=== PATIENT | female | born 1950 ===

== ENCOUNTER 2017-12-07 00:32 | Inpatient (IN) | payer MEDICARE, BC ==
[2017-12-06 15:03] LABS: INR 0.92
[~2017-12-07] VITALS: Ht 162.6 cm; Wt 118.4 kg
[2017-12-07] VITALS (13 sets, daily range): BP systolic 109–133; BP diastolic 63–87
[~2017-12-07 00:32] MED LIST: ACYC-50 PO; CALC-652 PO; DEN60I SUBQ; METH5TAB87 PO; MOMR ENA; POLY17PO25 PO; SPIR25TA78 PO; TRAZ-156 PO
--- NOTE | 2017-12-07 04:10 | HISTORY AND PHYSICAL ---
DATE OF ADMISSION: December 07, 2017 IDENTIFICATION, CHIEF COMPLAINT Lizet is a 67-year-old woman with a chief complaint of left knee pain. HISTORY OF PRESENT ILLNESS Patient has a longstanding history of knee arthritis, progressively painful and debilitating, refractory to conservative care. Surgery is indicated to relieve symptoms after failure of nonoperative measures. PAST MEDICAL HISTORY Notable for primary hyperaldosteronism, hyperthyroidism and arthritis. PAST SURGICAL HISTORY Notable for spinal operation, foot operation, cholecystectomy and hernia repair. ALLERGIES PENICILLIN, which causes a rash. CURRENT MEDICATIONS 1. Methimazole 5 mg q.a.m. 2. Spironolactone 50 mg q.a.m. 3. Trazodone 25 mg as needed. 4. Nasonex once daily for congestion. 5. Multiple vitamins. 6. She also gets Prolia injections once every six months for osteopenia. SOCIAL HISTORY Notable for smoking a half a pack of cigarettes per day. She drinks alcoholic beverages about one drink every six months on a rare occasion, denies abuse. REVIEW OF SYSTEMS Negative. FAMILY HISTORY Notable for thyroid problems on both sides of her family. PHYSICAL EXAMINATION GENERAL: This is a heavyset female. She appears stated age. HEENT: She is normocephalic, atraumatic. NECK: Supple. LUNGS: Clear. HEART: Regular. ABDOMEN: Soft. ORTHOPEDIC EXAM: There is valgus deformity noted in the knee. This is partially passively correctable. The knee is grossly stable. Extensor function is intact. Motion 0-110. Calves nontender. RADIOGRAPHIC DATA Radiographs demonstrate end-stage DJD, mostly really affecting the lateral compartment. ASSESSMENT Left knee end-stage degenerative joint disease, progressively painful and debilitating, refractory to conservative care. PLAN Per patient request, we are going to proceed with total knee arthroplasty. Nature of the procedure, risks, benefits, and alternatives were reviewed. The risks of the procedure include, but are not limited to, , major medical or anesthetic complication, infection, neurovascular injury, blood transfusion, stiffness, scarring, fracture, tendon rupture, instability, implant loosening, migration or failure, persistent or recurrent pain, need for additional surgery , and other unforeseen. She understands and wishes to proceed. Signed permit was placed in the chart, no guarantees are given or implied. JENNIFER
[2017-12-07] MEDS ORDERED: DEXAMETHASONE SOD PHOS 10MG/ML ONE (11:25)
[2017-12-07] MEDS ORDERED: ONDANSETRON 4 MG/2 ML VIAL ONE (11:25)
[2017-12-07] MEDS ORDERED: PROPOFOL EMUL(*) 10MG/ML 20 ML 20 ML ONE (11:25)
[2017-12-07] MEDS ORDERED: TRANEXAMIC AC 1000 MG/10ML SDV 1,000 MG in DEXTROSE 5% 50 ML BAG 50 ML IV ONE (12:00)
[2017-12-07] MEDS ORDERED: ACETAMINOPHEN 500 MG TAB PO ONE (12:00)
[2017-12-07] MEDS ORDERED: cloNIDine EPIDUR INJ 100MCG/ML 40 MCG, ROPIVACAINE 0.5% 20 ML VIAL 25 ML, EPINEPHrine H... INJ ONE (12:00)
[2017-12-07] MEDS ORDERED: CLINDAMYCIN(*) 900 MG/NS 50 ML 50 ML IVPB ONE (12:00)
[2017-12-07] MEDS ORDERED: PREGABALIN 150 MG CAPSULE PO ONE (12:00)
[2017-12-07] MEDS ORDERED: FAMOTIDINE 20 MG TAB PO ONE (12:00)
[2017-12-07] MEDS ORDERED: CELECOXIB 200 MG CAP PO ONE (12:00)
[2017-12-07] MEDS ORDERED: LIDOCAINE/SOD BICARB 8.4% SYR ID ONE (12:00)
[2017-12-07] MEDS ORDERED: NORMOSOL R SOLN(*) 1000 ML BAG 1,000 ML IV PRN ×2 (12:00→16:00)
[2017-12-07] MEDS ORDERED: MIDAZOLAM 2 MG/2 ML VIAL IVP PRN (12:00)
[2017-12-07] MEDS ORDERED: LIDOCAINE/SOD BICARB 8.4% SYR ONE (12:53)
[2017-12-07] MEDS ORDERED: VANCOMYCIN 1 GM VIAL ONE (14:34)
[2017-12-07] MEDS ORDERED: diphenhydrAMINE 25 MG CAP PO PRN (16:00)
[2017-12-07] MEDS ORDERED: MAGNESIUM HYDROXIDE* 30ML UDCP PO PRN (16:00)
[2017-12-07] MEDS ORDERED: ZOLPIDEM TARTRATE 5 MG TAB PO PRN (16:00)
[2017-12-07] MEDS ORDERED: diphenhydrAMINE 50 MG/ML VIAL IVP PRN (16:00)
[2017-12-07] MEDS ORDERED: PROMETHAZINE 25 MG/ML 1 ML AMP IVP PRN (16:00)
[2017-12-07] MEDS ORDERED: BISACODYL 10 MG SUPP PR PRN (16:00)
[2017-12-07] MEDS ORDERED: FLUSH 10 ML SYR IVP PRN (16:00)
[2017-12-07] MEDS ORDERED: ACETAMINOPHEN 325 MG TAB PO PRN (16:00)
[2017-12-07] MEDS ORDERED: BENZOCAINE/MENTHOL 1 EACH LOZG PO PRN (16:00)
--- NOTE | 2017-12-07 16:37 | RADIOLOGY IMAGING REPORT ---
[place] [facility] [place] NAME: Lizet Wilkins : 1950 MR: [id number] V: [id number] EXAM DATE: ORDERING PHYSICIAN: ERIKA SALDANA TECHNOLOGIST: Location: [facility] Patient: Lizet Wilkins : 1950 Visit/Account:[id number] Date of Sevice: 12/07/2017 Exam type: KNEE LIMITED LEFT History: POST OP LEFT TKA Comparison: None. Findings: AP and lateral views the left knee demonstrate a left knee arthroplasty in good anatomic alignment. Soft tissue gas and skin jude project over the anterior aspect of this postoperative knee IMPRESSION: 1. As above Report Dictated By: Loni Flores MD at 12/07/2017 4:33 PM Report E-Signed By: Loni Flores MD at 12/07/2017 4:33 PM WSN:[id number]
--- NOTE | 2017-12-07 17:06 | OPERATIVE REPORT 1 ---
EVENT DATE: December 07, 2017 SURGEON: Ad Henriquez MD ANESTHESIOLOGIST: Armin Seals MD ANESTHESIA: General plus spinal. ELEMENTARY LIBRARIAN: ISI Anaya PREOPERATIVE DIAGNOSIS Left knee degenerative joint disease. POSTOPERATIVE DIAGNOSIS Left knee degenerative joint disease. PROCEDURE PERFORMED Left total knee arthroplasty. ESTIMATED BLOOD LOSS Minimal. DRAINS None. SPECIMENS None. COMPLICATIONS None apparent. TOURNIQUET TIME 38 minutes INDICATIONS Lizet is a 67-year-old woman with intractable pain related to end-stage knee arthritis. Surgery is indicated to relieve symptoms after failure of nonoperative measures. DESCRIPTION OF PROCEDURE Patient was taken to the operating room and placed supine on the operating table. Spinal block was administered by the anesthesiologist. General anesthesia was induced. Antibiotics and TXA were administered IV. Left lower extremity was prepped and draped in the usual sterile fashion for orthopedic surgery. Limb was exsanguinated with an Esmarch bandage. Tourniquet inflated to 300 mmHg. Midline longitudinal incision made, carried down through the skin and subcutaneous tissue to the extensor mechanism. A medial parapatellar arthrotomy was performed. Patella was everted. Knee was brought into the flexed position. Fat pad, anterior horns of the menisci, and the cruciate ligaments are debrided. A conservative subperiosteal medial release is performed 1 cm circumferentially around the upper plateau to release the knee. A step drill is used to enter the distal femur. A 10-inch long alignment guide is used to engage the isthmus, cut set for 6 degrees of valgus relative to the anatomic axis. The 10 mm resection block is applied, pinned, and cuts made with an oscillating saw. AP sizing guide is applied to the distal femoral cut. There is no hypoplasia in spite of the valgus deformity. The block is positioned for 3 degrees of external rotation relative to the posterior condyles. Size 4 is optimal without risk of notching. The four-in-one cutting block is applied. Anterior, posterior, posterior chamfer, and anterior chamfer cuts are made respectively. PS block is applied and centered. Medial and lateral bone is removed from the box. Trial femur has good fit. Attention is turned to tibial preparation. The extramedullary guide is applied, positioned for varus, valgus, posterior slope, and rotation. This is set to resect 2 mm from the relatively deficient lateral tibial plateau. Block is pinned. Alignment check is made. Cuts made with an oscillating saw. After removal of osteophytes, no additional release is required to balance the knee. The size 3 tibial baseplate provides a good coverage without soft tissue overhang. This is loaded along with the trial liner and trial femur. Knee is brought to full extension. Patella is taken from the starting thickness of 23 to a residual of 14 with a patellar clamp and oscillating saw. The 33 provides optimum bony coverage without soft tissue overhang. Lug holes are drilled. Patella tracks nicely with the no-touch technique. Final tibial preparation consists of assuring appropriate rotational and translational positioning of the component. The boss is reamed. Fin is punched. Surfaces are lavaged. The patient's hole in the femoral canal due to osteopenic bone and lifting with the femoral retractor is packed densely with chips from the previously resected bone. Mixed methacrylate is made and components cemented in a single stage beginning with the tibia, followed by the femur. Axial load is held with the trial liner in full extension. The patella is held with a clamp. Once the cement is fully polymerized, the tourniquet is deflated, and hemostasis is assured. The 13 fills up the gap ideally, allowing the knee to drop to full extension without hyperextension, providing optimal soft tissue tension and stability. The tray is lavaged and dried, and the actual liner is locked into the baseplate. The arthrotomy is closed in flexion with #2 Ethibond, subcutaneous tissue with 3-0 Vicryl, and the skin with surgical jude. Xeroform and 4 x 4's applied as a dry, sterile dressing and compression wrap. The patient was awakened from anesthesia and taken to the recovery room in stable condition having tolerated the procedure well. Plan is for standard TKA rehab protocol. [facility]
[2017-12-07] MEDS ORDERED: TRAZ-156 PO (17:11)
[2017-12-07] MEDS ORDERED: SPIR50TA31 PO (17:11)
[2017-12-07] MEDS: CELECOXIB 200 MG CAP PO SCH (18:09)
--- NOTE | 2017-12-07 18:58 | Hospitalist Progress Note ---
Subjective Progress Notes Subjective Patient seen post-op. Reviewed PMHx (functioning adrenal adenoma, hyperthyroidism, smoking) and medications (methimazole, spironolactone, nicotine patch). At present she reports doing well. No CP/SOB/N/V. She has a history of post-op PE in mother and sister. She has Xarelto arranged for DVT prophylaxis following surgery. Physical Exam Vital Signs Date Time Temp Pulse Resp B/P (MAP) Pulse Ox O2 Delivery O2 Flow Rate FiO2 12/07/17 18:45 97.8 71 19 129/84 (99) 95 Nasal Cannula 0.5 Intake and Output 12/08/17 06:59 Intake Total 2750 ml Output Total 20 ml Balance 2730 ml Intake Oral 600 ml IV Total 1100 ml Other 1050 ml Output Estimated Blood Loss 20 ml General Appearance: Alert, Awake Cardiovascular: Regular Rate and Rhythm Respiratory: Clear to Auscultation Assessment and Plan Problems: (1) S/P knee replacement Status: Acute Assessment & Plan: She appears to be doing well post-op. She has a rather strong family history of post-op PE. She has already arranged for Xarelto 10mg daily and has prescription at home. (2) Hyperthyroidism Status: Chronic Assessment & Plan: Will continue her low dose methimazole. Will check CBC post- op. (3) History of adrenal adenoma Status: Chronic Assessment & Plan: Will continue her spironolactone. Check BMP post-op to monitor electrolytes. Exam Sepsis Risk: No Definite Risk GUNNER HERNANDEZ MD Dec 07, 2017 18:58
[2017-12-07] MEDS: APAP/HYDROCODONE 325/7.5 TAB PO PRN (21:10)
[2017-12-07] MEDS: CLINDAMYCIN(*) 900 MG/NS 50 ML 50 ML IVPB SCH (21:19)
[2017-12-07] MEDS: DIAZEPAM 5 MG TAB PO PRN (23:33)
[2017-12-08] VITALS (8 sets, daily range): BP systolic 126–143; BP diastolic 75–100; Ht 162.6 cm; Wt 118.4 kg
[2017-12-08] MEDS: CLINDAMYCIN(*) 900 MG/NS 50 ML 50 ML IVPB SCH ×2 (04:34→13:40)
[2017-12-08] MEDS: APAP/HYDROCODONE 325/7.5 TAB PO PRN ×3 (04:50→20:40)
[2017-12-08 06:18] LABS: PLATELET COUNT, AUTOMATED 139 K/uL (150-450)
[2017-12-08] MEDS: DIAZEPAM 5 MG TAB PO PRN ×3 (06:22→22:27)
--- NOTE | 2017-12-08 07:55 | Hospitalist Progress Note ---
Subjective Progress Notes Subjective She reports doing well. No complaints this AM. Physical Exam Vital Signs Date Time Temp Pulse Resp B/P (MAP) Pulse Ox O2 Delivery O2 Flow Rate FiO2 12/08/17 07:46 98.0 73 16 132/88 (103) 96 Nasal Cannula 12/08/17 03:16 0.5 General Appearance: Alert, Awake Cardiovascular: Regular Rate and Rhythm Respiratory: Clear to Auscultation Result Diagram: 12/08/1760412/08/17604 Assessment and Plan Problems: (1) S/P knee replacement Status: Acute Assessment & Plan: She appears to be stable post-op. She has a rather strong family history of post-op PE. She has already arranged for Xarelto 10mg daily and has prescription at home. (2) Hyperthyroidism Status: Chronic Assessment & Plan: Will continue her low dose methimazole. (3) History of adrenal adenoma Status: Chronic Assessment & Plan: Will continue her spironolactone. Exam Sepsis Risk: No Definite Risk GUNNER HERNANDEZ MD Dec 08, 2017 07:55
[2017-12-08] MEDS: SPIRONOLACTONE 25 MG TAB PO SCH (08:23)
[2017-12-08] MEDS: CELECOXIB 200 MG CAP PO SCH ×2 (08:23→17:47)
[2017-12-08] MEDS: METHIMAZOLE 10 MG TAB PO SCH (08:24)
[2017-12-08] MEDS: RIVAROXABAN 10 MG TAB PO SCH (08:24)
[2017-12-08] MEDS: NICOTINE 21 MG/24 HR PATCH TD SCH ×2 (09:00→20:40)
[2017-12-08] MEDS ORDERED: ASPIRIN 325 MG TAB PO SCH (09:00)
[2017-12-08] MEDS: ACYCLOVIR 200 MG CAP PO SCH ×2 (09:55→20:40)
[2017-12-08] MEDS ORDERED: MORPHINE 4 MG/ML SDV IVP ONE (11:25)
[2017-12-08] MEDS ORDERED: KETOROLAC 15 MG/ML VIAL IVP ONE (11:25)
[2017-12-09] MEDS: APAP/HYDROCODONE 325/7.5 TAB PO PRN ×4 (01:46→19:32)
[2017-12-09] MEDS: DIAZEPAM 5 MG TAB PO PRN ×2 (05:28→11:32)
[2017-12-09 07:42] VITALS: BP 123/92
[2017-12-09] MEDS: CELECOXIB 200 MG CAP PO SCH ×2 (07:56→16:43)
[2017-12-09] MEDS: RIVAROXABAN 10 MG TAB PO SCH (08:44)
[2017-12-09] MEDS: ACYCLOVIR 200 MG CAP PO SCH ×2 (08:44→21:40)
[2017-12-09] MEDS: METHIMAZOLE 10 MG TAB PO SCH (08:44)
[2017-12-09] MEDS: SPIRONOLACTONE 25 MG TAB PO SCH (08:44)
[2017-12-09 11:02] VITALS: BP 120/82
--- NOTE | 2017-12-09 11:08 | Hospitalist Progress Note ---
Subjective Progress Notes Subjective No new complaints. Her pain is improving. Physical Exam Vital Signs Date Time Temp Pulse Resp B/P (MAP) Pulse Ox O2 Delivery O2 Flow Rate FiO2 12/09/17 11:02 98.3 90 20 120/82 (95) 97 Nasal Cannula 1.0 Intake and Output 12/10/17 07:00 Intake Total 240 ml Balance 240 ml Intake Oral 240 ml General Appearance: Alert, Awake, No Acute Distress Neuro: No Gross deficits Cardiovascular: Regular Rate and Rhythm GI: Soft and Non-Tender Integumentary: Other (Surgical wound bandaged.) Psych: Appropriate Mood & Affect Result Diagram: 12/08/1760412/08/17604 Assessment and Plan Problems: (1) S/P knee replacement Status: Acute Assessment & Plan: She appears to be stable post-op. She has a rather strong family history of post-op PE. She has already arranged for Xarelto 10mg daily and has prescription at home. (2) Hyperthyroidism Status: Chronic Assessment & Plan: Will continue her low dose methimazole. (3) History of adrenal adenoma Status: Chronic Assessment & Plan: Will continue her spironolactone. Time Spent on Plan of Care: < 30 min Exam Sepsis Risk: No Definite Risk NADINE HERNANDEZ MD Dec 09, 2017 11:08
[2017-12-09] MEDS: MOMETASONE FUR SCH (11:33)
[2017-12-09 15:31] VITALS: BP 133/86
[2017-12-09] MEDS ORDERED: MOMR ENA (16:03)
[2017-12-09 18:51] VITALS: BP 115/75
[2017-12-09] MEDS ORDERED: NICOTINE 21 MG/24 HR PATCH TD SCH (21:00)
[2017-12-09 23:03] VITALS: BP 113/68
[2017-12-10] MEDS: DIAZEPAM 5 MG TAB PO PRN ×2 (00:15→08:38)
[2017-12-10 03:25] VITALS: BP 115/73
[2017-12-10] MEDS: APAP/HYDROCODONE 325/7.5 TAB PO PRN ×3 (05:45→16:30)
[2017-12-10 07:35] VITALS: BP 111/67
[2017-12-10] MEDS: CELECOXIB 200 MG CAP PO SCH ×2 (08:22→16:29)
[2017-12-10] MEDS: RIVAROXABAN 10 MG TAB PO SCH (08:22)
[2017-12-10] MEDS: METHIMAZOLE 10 MG TAB PO SCH (08:22)
[2017-12-10] MEDS: SPIRONOLACTONE 25 MG TAB PO SCH (08:22)
[2017-12-10] MEDS: ACYCLOVIR 200 MG CAP PO SCH (08:22)
[2017-12-10] MEDS: MOMETASONE FUR SCH (08:23)
[2017-12-10] MEDS ORDERED: HYDR-4308 PO (10:02)
[2017-12-10] MEDS ORDERED: DIA5 PO (10:02)
[2017-12-10] MEDS ORDERED: RIVA10TA PO (10:04)
[2017-12-10 15:20] VITALS: BP 102/72
== END 2017-12-10 16:45 | disposition home or self-care (01) | DRG 470 ==
LOC: OR 00:32 → MED 16:50
PROVIDERS: ADMIT Orthopaedic Surgery; ATTEND Orthopaedic Surgery
PROC: 0SRD0J9 Replacement of Left Knee Joint with Synthetic Substitute, Cemented, Open Approach (ICD-10-PCS; principal; 2017-12-07 13:16)
DX: M17.12 Unilateral primary osteoarthritis, left knee (principal); Z68.41 Body mass index [BMI] 40.0-44.9, adult; M21.062 Valgus deformity, not elsewhere classified, left knee; E26.9 Hyperaldosteronism, unspecified; I10 Essential (primary) hypertension; F17.210 Nicotine dependence, cigarettes, uncomplicated; E05.90 Thyrotoxicosis, unspecified without thyrotoxic crisis or storm; E66.9 Obesity, unspecified; Z90.49 Acquired absence of other specified parts of digestive tract; Z88.0 Allergy status to penicillin
CPT/HCPCS: 36415; 82310; 82374; 82435; 82565; 82947; 84132; 84295; 84520; 85025; 85610; 86850; 86900; 86901; 97161; C1713; C1776; J0171; J0735; J1100; J1885; J2250; J2270; J2405; J2550; J2704; J2795; J3370; J3490; J7050; J7060